=== PATIENT | male | born 1965 | race Caucasian/White ===

== ENCOUNTER 2023-09-22 09:10 | Outpatient (OUT) | payer OTHER, SELFPAY ==
--- NOTE | 2023-09-22 | CT_ITS ---
[address] [address] Patient Name: POOJA GIBSON MRN: [id number] date: 1965 Sex: M Assigned Patient Location: CT Current Patient Location: Accession/Order Number: [id number] Exam Date: 09/22/2023 09:40 Report Date: 09/24/2023 07:55 At the request of: DUC BLEDSOE Procedure: CT lung screening low-dose EXAMINATION: CT lung screening low-dose HISTORY: cigarette nicotine dependence COMPARISON: No relevant comparison available. TECHNIQUE: Axial, Coronal, and Sagittal images were created without the administration of IV contrast material.Dose reduction techniques were achieved by using automated exposure control and/or adjustment of mA and/or kV according to patient size and/or use of iterative reconstruction technique. FINDINGS: LUNGS: No visible pulmonary disease. PLEURA: No mass, effusion, or pneumothorax. VASCULATURE: No abnormality. DANIEL: No mass or pathologic adenopathy. MEDIASTINUM: No mass or pathologic adenopathy. CARDIAC: No enlargement, pericardial thickening, or significant calcification. CORONARY ARTERIES: AORTA: No aneurysm or dissection. CHEST WALL: No mass or axillary adenopathy BONES: No bone lesion or fracture. LIMITED ABDOMEN: No suspicious findings. Limited images of the upper abdomen. OTHER: Negative. CT/CT lung screening low-dose IMPRESSION: LUNG SCREENING: Lung-RADS Category 1 Negative. No nodules and definitely benign nodules. Continue annual screening with LDCT in 12 months. Electronically authenticated by: DEVIN GAINES Date: 09/24/2023 07:55
== END 2023-09-22 09:11 | disposition home or self-care (01) ==
LOC: CT 09:13
PROVIDERS: PCP Family Medicine; Visit Provider Family Medicine
DX: F17.210 Nicotine dependence, cigarettes, uncomplicated (principal)
CPT/HCPCS: 71271

== ENCOUNTER 2023-09-22 09:15 | Outpatient (OUT) | payer OTHER, SELFPAY ==
[2023-09-22 09:53] LABS: Basophils Percent Auto 0.5 % (0.2-2.0); Eosinophils Absolute Auto 0.1 10^3/uL (0.0-0.7); Eosinophils Percent Auto 1.2 % (0.9-7.0); Hematocrit 39.4 % (42.0-54.0); Hemoglobin 13.1 g/dL (14.0-18.0); Immature Granulocytes Abs Auto 0.04 10^3/uL (0.00-0.03); Immature Granulocytes Pct Auto 0.5 % (0.0-0.5); Lymphocytes Absolute Auto 1.6 10^3/uL (1.2-3.8); Lymphocytes Percent Auto 20.7 % (20.5-60.0); Mean Corpuscular HGB Conc 33.2 g/dL (29.9-35.2); Mean Corpuscular Hemoglobin 31.8 pg (25.9-34.0); Mean Corpuscular Volume 95.6 fL (80.0-94.0); Mean Platelet Volume 8.9 fL (9.5-13.5); Monocytes Absolute Auto 0.7 10^3/uL (0.3-0.8); Monocytes Percent Auto 8.8 % (1.7-12.0); Neutrophils Absolute Auto 5.1 10^3/uL (1.4-6.5); Neutrophils Percent Auto 68.3 % (43.0-75.0); Platelet Count 280 10^3/uL (150-450); Red Blood Count 4.12 10^6/uL (4.70-6.10); Red Cell Distribution Width 12.2 % (11.0-15.0); White Blood Count 7.5 10^3/uL (4.0-11.0)
[2023-09-22 10:22] LABS: Alanine Aminotransferase 37 U/L (16-63); Albumin Globulin Ratio 0.8; Albumin Level 3.1 g/dL (3.4-5.0); Alkaline Phosphatase 73 U/L (46-116); Anion Gap 13.1; Aspartate Amino Transferase 16 U/L (15-37); BUN Creatinine Ratio 15.4; Bilirubin Total 0.4 mg/dL (0.2-1.0); Calcium 8.3 mg/dL (8.5-10.1); Carbon Dioxide 25.7 mmol/L (21.0-32.0); Chloride 102 mmol/L (98-107); Chol HDL Ratio 2.8; Cholesterol 182 mg/dL (<=200); Estimated GFR (African America >60 (>=60); Estimated GFR (Non-African Ame >60 (>=60); Globulin 3.7 g/dL; Glucose 77 mg/dL (74-106); HDL Cholesterol 64 mg/dL (40-60); Potassium 3.8 mmol/L (3.5-5.1); Sodium 137 mmol/L (136-145); Total Protein 6.8 g/dL (6.4-8.2); Triglycerides 83 mg/dL (<=150); VLDL CHOLESTEROL 16.6 mg/dL
[2023-09-22 10:39] LABS: Prostate Specific Antigen Scrn 1.66 ng/mL (<=4.00)
== END 2023-09-22 09:16 | disposition home or self-care (01) ==
LOC: LAB 09:16
PROVIDERS: PCP Family Medicine; Visit Provider Family Medicine
DX: Z00.00 Encounter for general adult medical examination without abnormal findings (principal); F17.210 Nicotine dependence, cigarettes, uncomplicated; Z12.5 Encounter for screening for malignant neoplasm of prostate; E78.5 Hyperlipidemia, unspecified; I10 Essential (primary) hypertension
CPT/HCPCS: 36415; 71271; 80053; 80061; 85025; G0103

== ENCOUNTER 2024-03-13 14:59 | Outpatient (REF) | payer OTHER, SELFPAY ==
[2024-03-13 15:15] LABS: Bilirubin Urine NEGATIVE (NEGATIVE); Blood Urine NEGATIVE (NEGATIVE); Clarity Urine CLEAR (CLEAR); Color Urine YELLOW (YELLOW); Glucose Urine UA NEGATIVE (NEGATIVE); Ketones Urine NEGATIVE (NEGATIVE); Leukocyte Esterase Urine NEGATIVE (NEGATIVE); Nitrite Urine NEGATIVE (NEGATIVE); Protein Urine NEGATIVE (NEG/TRACE)
--- OUTSIDE RECORDS SUMMARY | 2024-03-13 15:16 | XMS_ITS | CCD ---
Author Organization [facility] CliniSytx Care Team Providers Care Pipe Coverer Name Role Phone CLAUDIA, DR DEEPA Crowder Admitting Unavailable TAYLOR, DR DEEPA Crowder Attending Unavailable TAYLOR, DR DEEPA Crowder Primary Care Unavailable TAYLOR, DR DEEPA Crowder Consulting Unavailable GRILLIS, DR ALDANA Admitting Unavailable GRILLIS, DR ALDANA Attending Unavailable TAYLOR, DR DEEPA Crowder Primary Care Unavailable GRILLIS, DR ALDANA Consulting Unavailable GRILLIS, DR ALDANA Admitting Unavailable GRILLIS, DR ALDANA Attending Unavailable TAYLOR, DR DEEPA Crowder Primary Care Unavailable GRILLIS, DR ALDANA Consulting Unavailable AGUBOSIM, BERTHA Consulting Unavailable CARMEN, MAGDALENA Consulting Unavailable TAYLOR, DR DEEPA Crowder Admitting Unavailable TAYLOR, DR DEEPA Crowder Attending Unavailable TAYLOR, DR DEEPA Crowder Primary Care Unavailable TAYLOR, DR DEEPA Crowder Consulting Unavailable ZIEBER, DR NAMITA Lucas Consulting Unavailable TAYLOR, DR DEEPA Crowder Admitting Unavailable TAYLOR, DR DEEPA Crowder Attending Unavailable TAYLOR, DR DEEPA Crowder Primary Care Unavailable TAYLOR, DR DEEPA Crowder Consulting Unavailable ZIEBER, DR NAMITA Lucas Consulting Unavailable Morteza De Leon II Unavailable Susan Allen Unavailable Devyn Khan Unavailable MD Deepa Taylor Primary Care Provider MD Morteza De Leon II Attending Provider [phone] Renae Long Unavailable Bertha Sood Attending Unavailable Bertha Sood Attending Unavailable Bertha oSod Attending Unavailable MD Trish Becerril Primary Care Provider MD Morteza De Leon II Attending Provider Morteza De Leon II Attending Unavailabl e Colleton II, Morteza M Admitting Unavailabl e BecerrilTrish Primary Care Unavailable Colleton II, Morteza M Attending Unavailabl e Claude II, Morteza M Admitting Unavailabl e Becerril, Trish E Primary Care Unavailable Colleton II, Morteza M Admitting Unavailabl e Becerril, Trish E Primary Care Unavailable Claude II, Morteza M Attending Unavailabl e Claude II, Morteza M Attending Unavailabl e Becerril, Trish E Primary Care Unavailable Colleton II, Morteza M Admitting Unavailabl e Colleton II, Morteza M Admitting Unavailabl e Becerril, Trish E Primary Care Unavailable Colleton II, Morteza M Attending Unavailabl e Claude II, Morteza M Admitting Unavailabl e Becerril, Trish E Primary Care Unavailable Colleton II, Morteza M Attending Unavailabl e Allergies Allergy Classification Reported Allergen(s) Allergy Type Date of Onset Reaction(s) Facility (1 source) celecoxib; Translations: [CeleBREX] Drug Allergy [facility] Repository Medications Current Medications Medication Drug Class(es) Dates Sig (Normalized) Sig (Original) acetaminophen 500 mg oral tablet (4 sources) Start: 02-28-2024 take 1000 mg by mouth every eight hours Acetaminophen Active 1000 MG PO Q8H 180 30 February 28, 2024 12:00am DO NOT RECONCILE UNTIL DOS: 03/10/24. MED TO BED amoxicillin 875 mg / clavulanate 125 mg oral tablet (3 sources) Penicillin-class Antibacterial Start: 02-10-2023 take 1 tablet by mouth every twelve hours Amoxicillin-Pot Clavulanate 875-125 MG 1 tablet Orally every 12 hrs for 7 days Jan, Active ascorbic acid 500 mg oral tablet (11 sources) Vitamin C Start: 07-30-2018 take 1 tablet by mouth once daily Ascorbic Acid (Vitamin C) (Vitamin C) 500 mg Tablet Active 500 MG PO Daily July 30, 2018 1:00am aspirin 81 mg delayed release oral tablet (20 sources) Platelet Aggregation Inhibitor, Nonsteroidal Anti-inflammatory Drug Start: 02-28-2024 take 81 mg by mouth twice daily Aspirin Active 81 MG PO Twice daily 70 35 February 28, 2024 12:00am DO NOT RECONCILE UNTIL DOS: 03/10/24. MED TO BED Start: 07-30-2018 Aspirin (Julia Low Dose Aspirin) 81 mg Tablet,Delayed Release (Dr/Ec) Active 81 MG PO Daily July 30, 2018 1:00am Baby Aspirin Act jaylon cefadroxil 500 mg oral capsule (4 sources) Cephalosporin Antibacterial Start: 02-28-2024 take 500 mg by mouth every twelve hours Cefadroxil Active 500 MG PO Q12H 14 February 28, 2024 12:00am DO NOT RECONCILE UNTIL DOS: 03/10/24. MED TO BED docusate sodium 50 mg / sennosides, retirement 8.6 mg oral tablet (4 sources) Start: 02-28-2024 take 2 tablets by mouth once daily Sennosides-Docusat e Sodium (Senokot-S) 8.6-50 mg tablet Active 2 TAB PO daily 60 February 28, 2024 12:00am DO NOT RECONCILE UNTIL DOS: 03/10/24. MED TO BED ergocalciferol 1.25 mg oral capsule (5 sources) Provitamin D2 Compound Start: 02-08-2024 take 1250 ug by mouth every week Ergocalciferol (Vitamin D2) Active 1250 MCG PO Q7D 8 60 February 08, 2024 12:00am hydroCHLOROthiazide 25 mg / losartan potassium 100 mg oral tablet (5 sources) Thiazide Diuretic, Angiotensin 2 Receptor Jaylen Start: 02-26-2024 take 1 tablet by mouth once daily in the morning Losartan-Hydrochlo rothiazide Active 1 TAB PO Every morning February 26, 2024 12:00am ibuprofen 200 mg oral tablet (20 sources) Nonsteroidal Anti-inflammatory Drug Start: 09-05-2023 take 1 tablet by mouth every six hours at mealtime as needed Ibuprofen Active 200 MG PO Every 6 hours September 05, 2023 1:00am FreeTextSi tablet with food or milk as needed Orally every 6 hrs; Note: Source Status: Not-Taking\PRN; Provider: Tiffany Davis ( ) take 1 tablet by parag th every six hours at mealtime as needed Ibuprofen 200 MG 1 tablet with food or m ilk as needed Orally every 6 hrs Not-Taking/PRN meloxicam 15 mg oral tablet (5 sources) Nonsteroidal Anti-inflammatory Drug Start: 02-19-2024 take 15 mg by mouth once daily Meloxicam Active 15 MG PO Daily February 19, 2024 12:00am On Hold: Resume on 04/10/24. ondansetron 4 mg oral tablet (4 sources) Serotonin-3 Receptor Antagonist Start: 02-28-2024 take 4 mg by mouth every eight hours Ondansetron Hcl Active 4 MG PO Q8H 9 February 28, 2024 12:00am DO NOT RECONCILE UNTIL DOS: 03/10/24. MED TO BED oxyCODONE hydrochloride 5 mg oral tablet (4 sources) Opioid Agonist Start: 02-28-2024 take 5 mg by mouth every four hours Oxycodone Active 5 MG PO Q4H 42 7 February 28, 2024 DO NOT RECONCILE UNTIL DOS: 03/10/24. MED TO BED pantoprazole 20 mg delayed release oral tablet (4 sources) Proton Pump Inhibitor Start: 02-28-2024 take 1 tablet by mouth once daily Pantoprazole (Protonix) 20 mg tablet,delayed release (DR/EC) Active 20 MG PO daily 35 35 February 28, 2024 12:00am DO NOT RECONCILE UNTIL DOS: 03/10/24. MED TO BED polyethylene glycol 3350 85612 mg powder for oral solution (4 sources) Osmotic Laxative Start: 02-28-2024 Polyethylene Glycol 3350 (Miralax) 17 gram/dose powder Active 17 GM PO daily 7 7 February 28, 2024 12:00am 1 packed mixed with 8 ounces of fluid. predniSONE 10 mg oral tablet (4 sources) Start: 02-28-2024 take 10 mg by mouth once daily Prednisone Active 10 MG PO daily 10 10 February 28, 2024 12:00am DO NOT RECONCILE UNTIL DOS: 03/10/24. MED TO BED traMADol hydrochloride 50 mg oral tablet (4 sources) Opioid Agonist Start: 02-28-2024 take 50 mg by mouth every six hours Tramadol Active 50 MG PO q6h 28 7 February 28, 2024 12:00am DO NOT RECONCILE UNTIL DOS: 03/10/24. MED TO BED Zinc (5 sources) Start: 02-26-2024 zinc Active Daily February 26, 2024 12:00am Completed/Discontinued Medications Medication Drug Class(es) Dates Sig (Normalized) Sig (Original) Amoxicillin (4 sources) Penicillin-class Antibacterial Amoxicillin Not-Taking/PRN Amoxicillin Not- Taking Amoxicillin Acti ve atorvastatin 40 mg oral tablet (11 sources) HMG-CoA Reductase Inhibitor Start: 07-30-2018 End: 02-05-2024 take 40 mg by mouth once daily at bedtime Atorvastatin Discontinued 40 MG PO Daily at bedtime July 30, 2018 1:00am February 05, 2024 4:06pm bisoprolol fumarate 10 mg / hydroCHLOROthiazide 6.25 mg oral tablet (11 sources) Thiazide Diuretic, beta-Adrenergic Jaylen Start: 07-30-2018 End: 02-05-2024 take 1 tablet by mouth once daily Bisoprolol-Hydroc hlorothiazide Discontinued 1 TAB PO Daily July 30, 2018 1:00am February 05, 2024 4:07pm diclofenac sodium 0.01 mg/mg topical gel (14 sources) Nonsteroidal Anti-inflammatory Drug Start: 11-03-2021 Diclofenac Sodium 1 % APPLY 1-2 GRAMS TO AFFECTED AREA Externally Four times a day for 30 days Oct, Not-Taking/PRN glucose 4000 mg chewable tablet (11 sources) Start: 07-30-2018 End: 02-05-2024 Glucose Discontinued 4 GM PO Q15M July 30, 2018 1:00am February 05, 2024 4:06pm 24 hr isosorbide mononitrate 30 mg extended release oral tablet (11 sources) Nitrate Vasodilator Start: 07-30-2018 End: 07-31-2018 take 30 mg by mouth once daily in the morning Isosorbide Mononitrate Discontinued 30 MG PO Every morning July 30, 2018 1:00am July 31, 2018 11:30am losartan potassium 25 mg oral tablet (20 sources) Angiotensin 2 Receptor Jaylen Start: 09-05-2023 End: 02-26-2024 take 25 mg by mouth once daily Losartan Discontinued 25 MG PO Daily September 05, 2023 1:00am February 26, 2024 1:37pm Losartan Potassi um Active metoprolol tartrate 25 mg oral tablet (11 sources) beta-Adrenergic Jaylen Start: 07-30-2018 End: 07-31-2018 take 12.5 mg by mouth twice daily Metoprolol Tartrate Discontinued 12.5 MG PO Twice daily July 30, 2018 1:00am July 31, 2018 11:30am triamcinolone acetonide 40 mg/ml injectable suspension (20 sources) Corticosteroid Start: 01-17-2023 Kenalog-40 Apr, 80 mg Start: 12-21-2021 Kenalog-40 Jun, 120 mg Start: 08-05-2021 Kenalog -40 mg Jul, 120 mg Start: 06-02-2021 Kenalog -40 mg May, 120 mg Visco 3 (20 sources) Start: 07-19-2022 Visco 3 Jul 2.5 mL Start: 07-12-2022 Visco 3 Jun 2.5 mL Start: 07-05-2022 Visco 3 Jun 2.5 mL Problems Active Problems Problem Classification Problem Date Documented Date Episodic/Chronic Disorders of lipid metabolism (12 sources) Hyperlipidemia; Translations: [Hyperlipidemia, unspecified] Onset: 02-07-2024 09-11-2023 Chronic Diverticulosis and diverticulitis (1 source) Diverticulosis of large intestine without perforation or abscess without bleeding; Translations: [DVRTCLOS LG INT NO PERF/ABSC W/O BL] Onset: 09-19-2021 Chronic Essential hypertension (19 sources) Essential (primary) hypertension; Translations: [Hypertensive disorder] Onset: 09-19-2021 09-11-2023 Chronic Osteoarthritis (20 sources) Arthritis of left knee; Translations: [Unilateral primary osteoarthritis, left knee] Onset: 11-03-2021 Resolved: 12-21-2021 Chronic Osteoporosis (9 sources) Osteoporosis; Translations: [Age-related osteoporosis without current pathological fracture] Onset: 02-07-2024 01-30-2024 Chronic Other aftercare (1 source) Aftercare following joint replacement surgery; Translations: [Aftercare following joint replacement surgery] Onset: 02-28-2024 Chronic Other aftercare (8 sources) Long-term current use of drug therapy; Translations: [Other terminal press operator (current) drug therapy] 01-30-2024 Episodic Other aftercare (1 source) Other correction (current) drug therapy; Translations: [Other terminal press operator (current) drug therapy] Onset: 02-07-2024 Episodic Other injuries and conditions due to external causes (14 sources) Injury of chest wall; Translations: [Thoracic sprain and strain] Episodic Other nervous system disorders (8 sources) Chronic pain; Translations: [Other chronic pain] Chronic Other nervous system disorders (1 source) Other chronic pain Chronic Other non-traumatic joint disorders (1 source) Pain in left knee Episodic Other screening for suspected conditions (not mental disorders or infectious disease) (17 sources) Encounter for screening for malignant neoplasm of colon; Translations: [Encounter for screening for malignant neoplasm of prostate] Onset: 05-11-2021 Episodic Other upper respiratory infections (2 sources) Acute pharyngitis, unspecified; Translations: [Acute maxillary sinusitis, unspecified] Episodic Sprains and strains (20 sources) Low back strain; Translations: [Lumbar strain] Episodic Substance-related disorders (11 sources) Nicotine dependence; Translations: [Nicotine dependence, cigarettes, uncomplicated] 09-12-2023 Chronic Unclassified (4 sources) CONTACT W/AND (SUSP) EXPOS COVID-19; Translations: [CONTACT W/AND (SUSP) EXPOS COVID-19] Onset: 07-28-2021 Past or Other Problems Problem Classification Problem Date Documented Da te Episodic/Chronic Other connective tissue disease (4 sources) Pain in left leg; Translations: [PAIN IN LEFT LEG] Onset: 05-13-2021 Episodic Other connective tissue disease (1 source) Pain in left lower leg; Translations: [PAIN IN LEFT LOWER LEG] Onset: 05-11-2021 Episodic Unclassified (1 source) CONTACT W/AND (SUSP) EXPOS COVID-19; Translations: [CONTACT W/AND (SUSP) EXPOS COVID-19] Onset: 07-22-2021 Results Test Name Value Interpretation Reference Range Facility ABO/Rh Retypeon 03-10-2024 ABO/RH Recheck Result Positive Normal [facility] Comment on above: Result Comment: PERF ORMED BY: [address] [id number] PATHOLOGIST PLATINUMSMITH ADDY GALEANO M.D. XR knee LT 2Von 03-10-2024 XR knee LT 2V [facility] Main [address] [address] XRay Report Signed Patient: Pooja Gibson MR#: [id number] 546 : 1965 Acct:[id number] Age/Sex: 58 / M ADM Date: 03/10/24 Loc: [place] Room: Type: [facility] Attending Dr: Morteza De Leon II, MD Copies to: Morteza De Leon MD Ordering Provider: Morteza De Leon MD Date of Service: 03/10/24 XR/XR knee LT 2V: Total or partial knee, due in PACU XR knee LT 2V 03/10/2024 7:37 AM SIGNS AND SYMPTOMS: Total or partial knee, due in PACU PROTOCOL: Frontal and lateral radiographs of the left knee COMPARISON: 01/30/2024 FINDINGS: Arthroplasty hardware is noted in the medial weightbearing compartment. This is new compared to the prior exam. The bones are in anatomic alignment. No hardware complication. Postoperative subcutaneous emphysema is noted. XR/XR knee LT 2V IMPRESSION: Interval arthroplasty hardware placement in the medial weightbearing compartment without hardware complication or malalignment. Impression dictated by: Ugo Trent M.D.03/10/2024 10:19 AM Dictation Location: [place] [address] Transcribed By: [facility] 03/10/24 1019 Dictated By: Ugo Trent II, MD 03/10/24 1017 Signed By: 03/10/24 1019 Normal [facility] XR tibia fibula LT 2V*on XR tibia fibula LT 2V* [facility] [address] [place] [address] XRay Report Signed Patient: Pooja Gibson MR#: [id number] 546 : 1965 Acct:[id number] Age/Sex: 58 / M ADM Date: 02/28/24 [place] [facility]: Type: [facility] Attending Dr: Morteza De Leon II, MD Copies to: Morteza De Leon MD Ordering Provider: Morteza De Leon MD Date of Service: 02/28/24 XR/XR tibia fibula LT 2V*: M17.12 - Unilateral primary osteoarthritis, left knee ([id number]) XR/XR femur LT 2V*: M17.12 - Unilateral primary osteoarthritis, left knee 2 views of the LEFT femur and 2 views of the LEFT tibia and fibula HISTORY: Preop assessment for LEFT total knee arthroplasty. Marked LEFT medial compartment degenerative changes. Unremarkable femur and hips. Symmetric pelvis. Likely old fracture of the proximal RIGHT tibia. Bony structures intact. Mild bilateral ankle joint degeneration greater on the RIGHT. Mild RIGHT knee degenerative change. XR/XR femur LT 2V* IMPRESSION: Extensive LEFT medial compartment degeneration. Impression dictated by: Dimitry Ellison M.D.02/28/2024 7:12 PM Dictation Location: [place] [address] Transcribed By: [facility] 02/28/241911 Dictated By: Dimitry Ellison DO 02/28/241908 Signed By: 02/28/241911 Normal [facility] Automated basophil %Ordered By: Morteza De Leon on 02-26-2024 Basophils/100 WBC (Bld) 0.4 % Normal . [facility] Comment on above: Performed By: #### B MP, CBC #### [address] #### FRUC #### [facility] , Automated basophil countOrde red By: Morteza De Leon on 02-26-2024 Basophils (Bld) [#/Vol] 0.0 10*3/uL Normal 0.0-0.2 [facility] Comment on above: Result Comment: PERF ORMED BY: [place] [address] PATHOLOGIST PLATINUMSMITH ADDY GALEANO M.D. Performed By: #### B MP, CBC #### [place] [address] [place] #### FRUC #### [facility] , Automated blood monocyte cou ntOrdered By: Morteza De Leon on 02-26-2024 Monocytes (Bld) [#/Vol] 0.7 10*3/uL Normal 0.0-0.8 [facility] Comment on above: Performed By: #### B MP, CBC #### [place] [address] [place] #### FRUC #### [facility] , Automated eosinophil %Ordere d By: Morteza De Leon on 02-26-2024 Eosinophils/100 WBC (Bld) 1.2 % Normal . [facility] Comment on above: Performed By: #### B MP, CBC #### [facility] [address] [place] [address] [place] #### FRUC #### [facility] , Automated eosinophil countOr dered By: Mortzea De Leon on 02-26-2024 Eosinophils (Bld) [#/Vol] 0.1 10*3/uL Normal 0.0-0.45 [facility] Comment on above: Performed By: #### B MP, CBC #### [facility] [address] [place] [address] [place] #### FRUC #### [facility] , Automated monocyte %Ordered By: Morteza De Leon on 02-26-2024 Monocytes/100 WBC (Bld) 8.5 % Normal . [facility] Comment on above: Performed By: #### B MP, CBC #### [facility] [address] [place] [address] [place] #### FRUC #### [facility] , Automated neutrophil %Ordere d By: Morteza De Leon on 02-26-2024 Neutrophils/100 WBC (Bld) 73.1 % Normal . [facility] Comment on above: Performed By: #### B MP, CBC #### [facility] [address] [place] [address] [place] #### FRUC #### [facility] , Basic Metabolic Panelon 02-13 GFR/1.73 sq M.predicted MDRD (S/P/Bld) [Vol rate/Area] mL/min/{1.73_m2} Normal [facility] Comment on above: Performed By: #### B MP, CBC #### [facility] [address] [place] [address] [place] #### FRUC #### [facility] , Bilirubin Test strip Ql (U)O rdered By: Morteza De Leon on 02-26-2024 Bilirubin Ql (U) Negative Negative [facility] Calcium [Mass/volume] in Ser um or PlasmaOrdered By: Morteza De Leon on 02-26-2024 Calcium [Mass/Vol] 9.3 mg/dL Normal 8.6-10.3 [facility] Comment on above: Result Comment: PERF ORMED BY: [place] [address] PATHOLOGIST PLATINUMSMITH ADDY GALEANO M.D. Performed By: #### B MP, CBC #### [address] #### FRUC #### [facility] , Carbon dioxide, total [Moles /volume] in Serum or PlasmaOrdered By: Morteza De Leon on 02-26-2024 CO2 [Moles/Vol] 30.6 mmol/L Normal 21.0-31.0 [facility] Comment on above: Performed By: #### B MP, CBC #### [facility] [address] [place] [address] #### FRUC #### [facility] , Chloride [Moles/volume] in S tony or PlasmaOrdered By: Morteza De Leon on 02-26-2024 Chloride [Moles/Vol] 104 mmol/L Normal 98-107 [facility] Comment on above: Performed By: #### B MP, CBC #### [facility] [address] [place] [address] [place] #### FRUC #### [facility] , Color of Urine by AutoOrdere d By: Morteza De Leon on 02-26-2024 Color (U) Light-yellow Normal Yellow [facility] Comment on above: Order Comment: Name Collection Type:: Clean-Voided Midstream Performed By: #### U A #### [address] Complete Blood Count Auto Di ffon 02-26-2024 Mean Corpuscular HGB Conc 33.8 g/dL Normal 32.5-35.6 [facility] Comment on above: Performed By: #### B MP, CBC #### [facility] [address] [place] [address] [place] #### FRUC #### [facility] , NRBC% 0.0 /100{WBC} Normal 0-0.5 [facility] Comment on above: Performed By: #### B MP, CBC #### [place] [address] [place] #### FRUC #### [facility] , Creatinine [Mass/volume] in Serum or PlasmaOrdered By: Morteza De Leon on 02-26-2024 Creatinine [Mass/Vol] 0.82 mg/dL Normal 0.70-1.30 [facility] Comment on above: Performed By: #### B MP, CBC #### [place] [address] [place] #### FRUC #### [facility] , ECG 12 lead ECGon 02-26-2024 ECG 12 lead ECG [facility] [place] [address] [place] [address] Electrocardiograph Report Signed Patient: Pooja Gibson MR#: [id number] 546 : 1965 Acct:[id number] Age/Sex: 58 / M ADM Date: 02/26/24 Loc: Room: Type: [facility] Attending Dr: Morteza De Leon II, MD Ordering Provider: Morteza De Leon MD Date of Service: 02/26/24 ECG/ECG 12 lead ECG: preop Copies to: Test Reason : Blood Pressure : */* mmHG Vent. Rate : 89 BPM Atrial Rate : 89 BPM P-R Int : 180 ms QRS Dur : 94 ms QT Int : 364 ms P-R-T Axes : 33 -16 49 degrees QTcB Int : 442 ms Normal sinus rhythm Normal ECG When compared with ECG of 30-Jul-2018 08:09, No significant change was found Confirmed by Gilberto Kennedy ([id number]) on 02/27/2024 9:33:56 AM Referred By: Electronically Signed By: Gilberto Kennedy Transcribed By: SUZAN Signed By Gilberto Kennedy MD 02/27/24 0933 Normal [facility] Erythrocyte distribution wid th [Ratio] by Automated countOrdered By: Morteza De Leon on 02-26-2024 Erythrocyte distribution width (RBC) [Ratio] 12.6 % Normal 12.0-14.8 [facility] Comment on above: Performed By: #### B MP, CBC #### [facility] [address] [place] [address] [place] #### FRUC #### [facility] , Erythrocytes [#/volume] in B lood by Automated countOrdered By: Morteza De Leon on 02-26-2024 RBC (Bld) [#/Vol] 4.12 10*6/uL Normal 3.90-5.60 [facility] Comment on above: Performed By: #### B MP, CBC #### [place] [address] [place] #### FRUC #### [facility] , Fructosamineon 02-26-2024 Fructosamine 213 umol/L Normal 0-285 [facility] Comment on above: Result Comment: Publ ished reference interval for apparently healthy subjects between age 20 and 60 is 205 - 285 umol/L and in a poorly controlled diabetic population is 228 - 563 umol/L with a mean of 396 umol/L. Performed at: [facility] [address] [id number] Pedicurist: Luisito Reyna PhD, Phone: [phone] PERFORMED BY: [place] [address] PATHOLOGIST PLATINUMSMITH ADDY GALEANO M.D. Performed By: #### B MP, CBC #### [facility] [address] [place] [address] [place] #### FRUC #### [facility] , Fructosamine [Moles/volume] in Serum or PlasmaOrdered By: Morteza De Leon on 02-26-2024 Fructosamine [Moles/Vol] 213 umol/L 0-285 [facility] Comment on above: Published reference interval for apparently healthysubjects between age 20 and 60 is 205 - 285 umol/L and in apoorly controlled diabetic population is 228 - 563 umol/Lwith a mean of 396 umol/L.Performed at: - [facility] [id number] Director: Luisito Reyna PhD, Phone: [phone] Glucose [Mass/volume] in Ser um or PlasmaOrdered By: Morteza De Leon on 02-26-2024 Glucose [Mass/Vol] 121 mg/dL High 70-100 [facility] Comment on above: ADA recommended refe rence rangeRandom Glucose Reference Range is dependent on time and content of last meal. Glucose of more than 200 mg/dL in a nonstressed, ambulatory subject supports the diagnosis of Diabetes Mellitus. Result Comment: [place] om Glucose Reference Range is dependent on time and content of last meal. Glucose of more than 200 mg/dL in a nonstressed, ambulatory subject supports the diagnosis of Diabetes Mellitus. ADA recommended reference range Performed By: #### B MP, CBC #### [facility] [address] [place] [address] [place] #### FRUC #### [facility] , Glucose [Mass/volume] in Uri ne by Test stripOrdered By: Morteza De Leon on 02-26-2024 Glucose Test strip (U) [Mass/Vol] Normal mg/dL Normal [facility] Hematocrit [Volume Fraction] of Blood by Automated countOrdered By: Morteza De Leon on 02-26-2024 Hematocrit (Bld) [Volume fraction] 39.4 % Normal 38.8-50.0 [facility] Comment on above: Performed By: #### B MP, CBC #### [facility] [address] [place] [address] [place] #### FRUC #### [facility] , Hemoglobin Test strip Ql (U) Ordered By: Morteza De Leon on 02-26-2024 Hemoglobin Ql (U) Negative Negative [facility] Hemoglobin [Mass/volume] in BloodOrdered By: Morteza eD Leon on 02-26-2024 Hemoglobin (Bld) [Mass/Vol] 13.3 g/dL Normal 13.0-17.0 [facility] Comment on above: Performed By: #### B MP, CBC #### [address] #### FRUC #### [facility] , Ketones [Presence] in Urine by Test stripOrdered By: Morteza De Leon on 02-26-2024 Ketones Ql (U) Negative Normal Negative [facility] Comment on above: Order Comment: Name Collection Type:: Clean-Voided Midstream Performed By: #### U A #### [address] Leukocyte esterase [Presence ] in Urine by Test stripOrdered By: Morteza De Leon on 02-26-2024 Leukocyte esterase Test strip Ql (U) Negative Normal Negative [facility] Comment on above: Order Comment: Name Collection Type:: Clean-Voided Midstream Performed By: #### U A #### [address] Leukocytes [#/volume] correc krissy for nucleated erythrocytes in Blood by Automated counOrdered By: Morteza De Leon on 02-26-2024 WBC corrected for nucl RBC Auto (Bld) [#/Vol] 8.7 10*3/uL 4.1-10.5 [facility] Leukocytes [#/volume] in Blo od by Automated countOrdered By: Morteza De Leon on 02-26-2024 WBC (Bld) [#/Vol] 8.7 10*3/uL Normal 4.1-10.5 [facility] Comment on above: Performed By: #### B MP, CBC #### [facility] [address] [place] [address] #### FRUC #### [facility] , Lymphocytes [#/volume] in Bl ood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 plate. His eyes rest on a plate. He has screws that keep his jaw aligned and wire mesh that covers the plates under his eyes. He believes he suffers from asthma. He used to struggle with breathing whenever he smoked cigarettes. He quit smoking and has not had any problems. He experienced an adverse reaction to an inhaler at work, which resulted in tachycardia and elevated blood pressure. Consequently, he was brought to the hospital. This incident occurred approximately 18 or 19 years ago. He reports a couple of incidents at work. The most recent incident is when he came to see someone, and everything went fuzzy. He subsequently found himself in the health center, unable to recall the events of the past 15 minutes. He was informed that he was transported via ambulance. At the scene, had was seen with gas masks and hoses. He went to the hospital, but the cause of these episodes remains undetermined. He took his blood pressure medication this morning at 5:00 AM., which he takes daily. He had a physical done at work and they gave him a new card. He underwent a physical examination at his workplace and received a new card. His current blood pressure reading is 146/82 mmHg. On 09/08/2021, his blood pressure was 152/90 mmHg. He has a habit of frequently monitoring his blood pressure and carries the card in his wallet for reference. He quit smoking between 3 and 4 years ago, with a smoking history of 45 years at a rate of 2 packs per day. He reports no breathing problem. He has not seen Dr. Taylor in about 1.5 years. He saw him whenever they did an angiogram. He had him do a stress test. He cannot run or walk on the treadmill. He was told that his blockage was minimal, and intervention was not required for several years. Review of Systems PHQ Score Initial Depression Screen Score: 0 SCORE Physical Exam Vitals & Measurements T: 36.8 ?C(Oral) HR: 92(Peripheral) RR: 18 BP: 150/86 SpO2: 96% HT: 73 in HT: 185.42 cm WT: 123.3 kg WT: 271.26 lb BMI: 35.86 General: alert, no acute distress ENMT: oral mucosa moist, no pharyngeal erythema or exudate Cardiovascular: regular rate and rhythm, normal peripheral perfusion Respiratory: Lungs CTA, respirations non labored Extremities: no deformity, no trauma Neurological: oriented x 4, LOC appropriate for age, CN II-XII intact, motor strength equal & normal bilaterally, speech normal Assessment/Plan 1. HTN (hypertension) (I10: Essential (primary) hypertension) Patient's blood pressure is not at a goal range today.Upon reviewing all the patient's last blood pressure readings, the patient has not been controlled for quite some time. We will go ahead and increase his medication today and follow up in 3 months for recheck. 2. Migraines (G43.909: Migraine, unspecified, not intractable, without status migrainosus) The patient does have issues with migraines, self-limited secondary to multiple surgeries on the skull. 3. OA (osteoarthritis) (M19.90: Unspecified osteoarthritis, unspecified site) OTC medications as advised. 4. BMI 35.0-35.9,adult (Z68.35: Body mass index [BMI] 35.0-35.9, adult) BMI education given. 5. Class 1 obesity due to excess calories in adult (E66.09: Other obesity due to excess calories) Diet and exercise advised. 6. Former smoker (Z87.891: Personal history of nicotine dependence) Please continue not to smoke. 7. Cigarette nicotine dependence in remission (F17.211: Nicotine dependence, cigarettes, in remission) We will do a low-dose CT scan. We will see the patient back in 3 months for a full physical with lab work. Portions of this record may have been created with voice recognition artificial intelligence software, specifically [employer], [employer] and or [employer]. Substituti (more content not included)... Normal [facility] Comment on above: Result Comment: Elec tronically Signed By: Bertha Sood MD\.br\Date and Time Signed: 08/27/23 12:38 EST\.br\Electronically Co-Signed By: Oscar Nicolas\.br\Date and Time Co-Signed: 08/20/23 19:37 EST Insurance Correspondenceon 0 08-23-2023 Insurance Correspondence [id number] [facility] Ambulatory Visit Summaryon 0 08-20-2023 Ambulatory Visit Summary POOJA GIBSON :1965 Visit Date:08/20/2023 Ambulatory Visit Instructions Your Diagnosis HTN (hypertension) Migraines OA (osteoarthritis) BMI 35.0-35.9,adult Class 1 obesity due to excess calories in adult Former smoker Cigarette nicotine dependence in remission Your Care Team Attending Physician - Bertha Sood MD Primary Care Physician - Bertha Sood MD This Is Your Medications List hydrochlorothiazide-losart an (hydrochlorothiazide-losar mcneil 25 mg-100 mg Tab) Contact prescribing physician if questions or concerns aspirin (aspirin 81 mg Oral EC Tab) Procedures Performed Arthroplasty, Colonoscopy, Surgery, Surgery. Discharge Vitals Temperature (Oral) 36.8 ?C Heart Rate (Peripheral) 92 Respiratory Rate 18 Blood Pressure 150/86 Height 185.42 cm Height 73 in Weight 123.3 kg Weight 271.26 lb BMI 35.86 What to do next Scheduled Follow-Up Appointments Sunday. 2023 5:15 PM EDT With: Bertha Sood MD Where: [facility] [place] Normal [facility] Physician Orderon 08-07-2023 Physician Order [id number] Normal [facility] Quick Strepon 02-10-2023 S. pyogenes Org specific cx Ql (Throat) Negative [employer] Other Quick Strep [facility] [email or web address] Other Covid-19 PCR ([facility])on 08-17 SARS-CoV-2 (COVID-19) RNA DELICIA+probe Ql (Unsp spec) Not detected Normal NOT DETECTED [facility] Comment on above: Result Comment: This test is not yet approved or cleared by the [place] FDA. When there are no FDA-approved or cleared tests available, and other criteria are met, FDA can make tests available under an emergency access mechanism called an Emergency Use Authorization (EUA). The EUA for this test is supported by the [place] of Health and Human Service's (HHS's) declaration that circumstances exist to justify the emergency use of in vitro diagnostics for the detection and/or diagnosis of the virus that causes COVID-19. This EUA will remain in effect (meaning this test can be used) for the duration of the COVID-19 declaration justifying emergency of IVDs, unless it is terminated or revoked by FDA (after which the test may no longer be used). When diagnostic testing is negative, the possibility of a false negative should be considered in the context of a patient's recent exposures and the presence of clinical signs and symptoms consistent with SARS-CoV-2. Performed By: #### C VDTB #### [facility] [address] [place] [address] Leonard Strauss Covid-19 PCR ([facility])on SARS-CoV-2 (COVID-19) RNA DELICIA+probe Ql (Unsp spec) Not detected Normal NOT DETECTED [facility] Comment on above: Result Comment: This test is not yet approved or cleared by the [place] FDA. When there are no FDA-approved or cleared tests available, and other criteria are met, FDA can make tests available under an emergency access mechanism called an Emergency Use Authorization (EUA). The EUA for this test is supported by the [place] of Health and Human Service's (HHS's) declaration that circumstances exist to justify the emergency use of in vitro diagnostics for the detection and/or diagnosis of the virus that causes COVID-19. This EUA will remain in effect (meaning this test can be used) for the duration of the COVID-19 declaration justifying emergency of IVDs, unless it is terminated or revoked by FDA (after which the test may no longer be used). When diagnostic testing is negative, the possibility of a false negative should be considered in the context of a patient's recent exposures and the presence of clinical signs and symptoms consistent with SARS-CoV-2. Performed By: #### C VDTB #### [facility] [address] [place] [address] Leonard Strauss NM BONE SCAN LIMITon 021 NM BONE SCAN LIMIT EXAMINATION: NM BONE SCAN LIMIT HISTORY: Pain of left lower leg ; pain in distal left leg between knee and ankle; no known injury COMPARISON: XR tib-fib left 05/04/2021 TECHNIQUE: Following the intravenous administration of 25.1 mCi Tc-99m sulfur colloid, static views were obtained over areas of interest. FINDINGS: REGION IMAGED: Distal lower extremities between knee and ankle. ABNORMAL FOCI: Small foci of increased radiotracer activity along the medial margin of the tibial plateau. OTHER: Negative. IMPRESSION: 1. Small focus of abnormal increased radiotracer activity involving the medial margin of the left tibial plateau with no corresponding findings on the recent radiographs; possible bone bruising or mild degenerative changes. Consider MRI of the knee if symptoms are localized to this area. 2. No abnormal radiotracer activity within the diaphysis of the tibia and fibula. Electronically authenticated by: NAMITA KYLE Date: 2021-05-13 10:31 Normal [facility] CBC AUTO DIFFon 05-04-2021 BASO # 0.0 103/ul Normal 0.0-0.1 [facility] Comment on above: Performed By: #### C BC #### [facility] [address] [address] [address] Leonard Strauss Basophils/100 WBC (Bld) 0.2 % Normal 0.2-2.0 [facility] Comment on above: Performed By: #### C BC #### [facility] [address] [address] [address] Leonard Strauss EO # 0.2 103/ul Normal 0.0-0.7 [facility] Comment on above: Performed By: #### C BC #### [facility] [address] [address] [address] Leonard Strauss Eosinophils/100 WBC (Bld) 1.9 % Normal 0.9-7.0 [facility] Comment on above: Performed By: #### C BC #### [facility] [address] [place] [address] Dr. Leonard Strauss Erythrocyte distribution width (RBC) [Ratio] 12.4 % Normal 11.0-15.0 [facility] Comment on above: Performed By: #### C BC #### [facility] [address] [address] [address] Leonard Strauss Hematocrit (Bld) [Volume fraction] 38.6 % Critically low 42.0-54.0 [facility] Comment on above: Performed By: #### C BC #### [facility] [address] [place] [address] Dr. Leonard Strauss Hemoglobin (Bld) [Mass/Vol] 12.8 g/dL Critically low 14.0-18.0 [facility] Comment on above: Performed By: #### C BC #### [facility] [address] [place] [address] Dr. Leonard Strauss IG # 0.03 10e3/ul Normal 0.00-0.03 [facility] Comment on above: Performed By: #### C BC #### [facility] [address] [place] [address] Dr. Leonard Strauss IG % 0.3 % Normal 0.0-0.5 [facility] Comment on above: Performed By: #### C BC #### [facility] [address] [place] [address] Dr. Leonard Strauss LYMPH # 2.0 103/ul Normal 1.2-3.8 [facility] Comment on above: Performed By: #### C BC #### [facility] [address] [place] [address] Dr. Leonard Strauss Lymphocytes/100 WBC (Bld) 23.3 % Normal 20.5-60.0 [facility] Comment on above: Performed By: #### C BC #### [facility] [address] [place] [address] Dr. Leonard Strauss MANUAL DIFF REQ NO Normal [facility] Comment on above: Performed By: #### C BC #### [facility] [address] [place] [address] Dr. Leonard Strauss MCH (RBC) [Entitic mass] 30.8 pg Normal 25.9-34.0 [facility] Comment on above: Performed By: #### C BC #### [facility] [address] [place] [address] Dr. Leonard Strauss MCHC (RBC) [Mass/Vol] 33.2 g/dL Normal 29.9-35.2 [facility] Comment on above: Performed By: #### C BC #### [facility] [address] [place] [address] Dr. Leonard Strauss MCV (RBC) [Entitic vol] 93.0 fL Normal 80.0-94.0 [facility] Comment on above: Performed By: #### C BC #### [facility] [address] [place] [address] Dr. Leonard Strauss MONO # 0.6 103/ul Normal 0.3-0.8 [facility] Comment on above: Performed By: #### C BC #### [facility] [address] [address] [address] Leonard Strauss Monocytes/100 WBC (Bld) 7.0 % Normal 1.7-12.0 [facility] Comment on above: Performed By: #### C BC #### [facility] [address] [address] [address] Leonard Strauss NEUT # 5.8 103/ul Normal 1.4-6.5 [facility] Comment on above: Performed By: #### C BC #### [facility] [address] [place] [address] Dr. Leonard Strauss Neutrophils/100 WBC (Bld) 67.3 % Normal 43.0-75.0 [facility] Comment on above: Performed By: #### C BC #### [facility] [address] [place] [address] Dr. Leonard Strauss Platelet mean volume (Bld) [Entitic vol] 8.9 fL Critically low 9.5-13.5 [facility] Comment on above: Performed By: #### C BC #### [facility] [address] [place] [address] Dr. Leonard Strauss PLT 259 103/ul Normal 150-450 [facility] Comment on above: Performed By: #### C BC #### [facility] [address] [place] [address] Dr. Leonard Strauss RBC 4.15 106/ul Critically low 4.70-6.10 [facility] Comment on above: Performed By: #### C BC #### [facility] [address] [place] [address] Dr. Leonard Strauss WBC 8.6 103/ul Normal 4.0-11.0 [facility] Comment on above: Performed By: #### C BC #### [facility] [address] [place] [address] Dr. Leonard Strauss GLYCOHEMOGLOBIN A1Con 2020 ADA RECOMMENDATION ADA THERAPEUTIC TARG ET 6.0 - 7.0 ACTION SUGGESTED > 7.0 Normal [facility] Comment on above: Performed By: #### A 1C #### [facility] [address] [address] [address] Leonard Strauss Glucose [Mass/Vol] 114 mg/dL Normal [facility] Comment on above: Performed By: #### A 1C #### [facility] [address] [address] [address] Leonard Strauss HbA1c (Bld) [Mass fraction] 5.6 % Normal <=6.0 [facility] Comment on above: Performed By: #### A 1C #### [facility] [address] [place] [address] Dr. Leonard Strauss LIPID PROFILEon 05-04-2021 CHOL-HDL RATIO NORM SEE BELOW Normal [facility] Comment on above: Result Comment: 3.3 - 4.4 LOW RISK 4.4 - 7.1 AVERAGE RISK 7.1 - 11.0 MODERATE RISK >11.0 HIGH RISK Performed By: #### L IPID, CMP #### [facility] [address] [address] [address] Leonard Strauss Cholesterol [Mass/Vol] 203 mg/dL Critically high <=200 [facility] Comment on above: Performed By: #### L IPID, CMP #### [facility] [address] [address] [address] Leonard Strauss Cholesterol in HDL [Mass/Vol] 50 mg/dL Normal [facility] Comment on above: Performed By: #### L IPID, CMP #### [facility] [address] [address] [address] Leonard Strauss Cholesterol in LDL [Mass/Vol] 114.2 mg/dL Normal [facility] Comment on above: Performed By: #### L IPID, CMP #### [facility] [address] [address] [address] Leonard Strauss Cholesterol.total/Cho lesterol in HDL [Mass ratio] 4.1 {ratio} Normal [facility] Comment on above: Performed By: #### L IPID, CMP #### [facility] [address] [address] [address] Leonard Strauss HDL NORMAL > or = 60 mg/dl - LO W CARDIOVASCULAR RISK <40 mg/dl - HIGH CARDIOVASCULAR RISK Normal [facility] Comment on above: Performed By: #### L IPID, CMP #### [facility] [address] [address] [address] Leonard Strauss LDL CALC NORMAL SEE BELOW Normal [facility] Comment on above: Result Comment: <100 mg/dl OPTIMAL 100 - 129 mg/dl NEAR OR ABOVE OPTIMAL 130 - 159 mg/dl BORDERLINE HIGH 160 - 189 mg/dl HIGH >190 mg/dl VERY HIGH Performed By: #### L IPID, CMP #### [facility] [address] [place] [address] Dr. Leonard Strauss Triglyceride [Mass/Vol] 194 mg/dL Critically high <=150 [facility] Comment on above: Performed By: #### L IPID, CMP #### [facility] [address] [address] [address] Leonard Strauss VLDL CALC 38.8 mg/dL Normal [facility] Comment on above: Performed By: #### L IPID, CMP #### [facility] [address] [address] [address] Leonard Strauss PROF 14(COMP METB)on 021 Albumin [Mass/Vol] 3.7 g/dL Normal 3.5-5.0 [facility] Comment on above: Performed By: #### L IPID, CMP #### [facility] [address] [place] [address] Dr. Leonard Strauss Albumin/Globulin [Mass ratio] 0.9 {ratio} Normal [facility] Comment on above: Performed By: #### L IPID, CMP #### [facility] [address] [place] [address] Dr. Leonard Strauss ALP [Catalytic activity/Vol] 84 U/L Normal 38-126 [facility] Comment on above: Performed By: #### L IPID, CMP #### [facility] [address] [place], [place] [id number] Dr. Leonard Strauss ALT [Catalytic activity/Vol] 32 U/L Normal 21-72 [facility] Comment on above: Performed By: #### L IPID, CMP #### [facility] [address] [place] [address] Dr. Leonard Strauss Anion gap [Moles/Vol] 12.8 mmol/L Normal [facility] Comment on above: Performed By: #### L IPID, CMP #### [facility] [address] [place] [address] Dr. Leonard Strauss AST [Catalytic activity/Vol] 22 U/L Normal 17-59 [facility] Comment on above: Performed By: #### L IPID, CMP #### [facility] [address] [place] [address] Dr. Leonard Strauss Bilirubin [Mass/Vol] 0.5 mg/dL Normal 0.2-1.3 [facility] Comment on above: Performed By: #### L IPID, CMP #### [facility] [address] [place] [address] Dr. Leonard Strauss Calcium [Mass/Vol] 8.6 mg/dL Normal 8.4-10.2 [facility] Comment on above: Performed By: #### L IPID, CMP #### [facility] [address] [place] [address] Dr. Leonard Strauss Chloride [Moles/Vol] 103 mmol/L Normal 98-107 [facility] Comment on above: Performed By: #### L IPID, CMP #### [facility] [address] [place] [address] Dr. Leonard Strauss CO2 [Moles/Vol] 25.8 mmol/L Normal 22.0-30.0 [facility] Comment on above: Performed By: #### L IPID, CMP #### [facility] [address] [place] [address] Dr. Leoanrd Strauss Creatinine [Mass/Vol] 0.83 mg/dL Normal 0.66-1.25 [facility] Comment on above: Performed By: #### L IPID, CMP #### [facility] [facility] [address] [address] [address] Leonard Strauss EGFR-AF GERMAN >60 Normal >=60 [facility] Comment on above: Performed By: #### L IPID, CMP #### [facility] [address] [address] [address] Leonard Strauss EGFR-NON AF GERMAN >60 Normal >=60 [facility] Comment on above: Performed By: #### L IPID, CMP #### [facility] [address] [address] [address] Leonard Strauss Globulin (S) [Mass/Vol] 3.9 g/dL Normal [facility] Comment on above: Performed By: #### L IPID, CMP #### [facility] [address] [address] [address] Leonard Strauss Glucose [Mass/Vol] 98 mg/dL Normal 74-106 [facility] Comment on above: Performed By: #### L IPID, CMP #### [facility] [address] [address] [address] Leonard Strauss Potassium [Moles/Vol] 3.6 mmol/L Normal 3.4-5.0 [facility] Comment on above: Performed By: #### L IPID, CMP #### [facility] [address] [address] [address] Leonard Strauss Protein [Mass/Vol] 7.6 g/dL Normal 6.1-8.2 [facility] Comment on above: Performed By: #### L IPID, CMP #### [facility] [address] [address] [address] Leonard Strauss Sodium [Moles/Vol] 138 mmol/L Normal 137-145 [facility] Comment on above: Performed By: #### L IPID, CMP #### [facility] [address] [address] [address] Leonard Strauss Urea nitrogen [Mass/Vol] 22.0 mg/dL Critically high 9.0-20.0 [facility] Comment on above: Performed By: #### L IPID, CMP #### [facility] [address] [address] [address] Leonard Strauss Urea nitrogen/Creatinine [Mass ratio] 26.5 mg/mg Normal [facility] Comment on above: Performed By: #### L IPID, CMP #### [facility] [id number] Leonard Strauss Vital Signs Date Time Vital Sign Value Performing Clinician Facility 03-10-2024 12:45-0400 Diastolic blood pressure 80 mm[Hg] MD Trish Becerril Work Phone: [facility] 03-10-2024 12:45-0400 Heart rate 67 /min MD Trish Becerril Work Phone: [phone] [place] [address] 03-10-2024 12:45-0400 Respiratory rate 20 /min MD Trish Becerril Work Phone: [facility] 03-10-2024 12:45-0400 SaO2% (BldA) [Mass fraction] 97 % MD Trish Becerril Work Phone: [facility] 03-10-2024 12:45-0400 Systolic blood pressure 126 mm[Hg] MD Trish Becerril Work Phone: [facility] 03-10-2024 10:43-0400 Body temperature 96.6 [degF] MD Trish Becerril Work Phone: [facility] 03-10-2024 09:56-0400 Inhaled oxygen flow rate 8 L/min MD Trish Becerril Work Phone: [facility] 03-10-2024 06:23-0400 Body height 181.61 cm MD Trish Becerril Work Phone: [facility] 03-10-2024 06:23-0400 Body weight 119 kg MD Trish Becerril Work Phone: [facility] 02-28-2024 14:51-0400 Body height 185.42 cm MD Trish Becerril Work Phone: [facility] 02-28-2024 14:51-0400 Body mass index (BMI) [Ratio] 34.9 kg/m2 MD Trish Becerril Work Phone: [facility] 02-28-2024 14:51-0400 Body weight 120 kg MD Trish Becerril Work Phone: [facility] 02-05-2024 16:03-0400 Body height 185.42 cm MD Trish Becerril Work Phone: [facility] 02-05-2024 16:03-0400 Body mass index (BMI) [Ratio] 35.1 kg/m2 MD Trish Becerril Work Phone: [facility] 02-05-2024 16:03-0400 Body weight 120.65 kg MD Trish Becerril Work Phone: [facility] 02-05-2024 16:03-0400 Diastolic blood pressure 81 mm[Hg] MD Trish Becerril Work Phone: [facility] 02-05-2024 16:03-0400 Heart rate 81 /min MD Trish Becerril Work Phone: [facility] 02-05-2024 16:03-0400 Systolic blood pressure 143 mm[Hg] MD Trish Becerril Work Phone: [facility] 09-11-2023 15:34-0500 Body height 185.42 cm [facility] 09-11-2023 15:34-0500 Body mass index (BMI) [Ratio] 34.8 kg/m2 [facility] 09-11-2023 15:34-0500 Body weight 119.74 kg [facility] 09-11-2023 15:34-0500 Diastolic blood pressure 80 mm[Hg] [facility] 09-11-2023 15:34-0500 Heart rate 96 /min [facility] 09-11-2023 15:34-0500 Systolic blood pressure 128 mm[Hg] [facility] 02-10-2023 10:55-0400 Body height 185.42 cm Renae Long Other [facility] Other 02-10-2023 10:55-0400 Body mass index (BMI) [Ratio] 37.97 kg/m2 Renae Long Other [facility] Other 02-10-2023 10:55-0400 Body temperature 97.2 [degF] Renae Long Other [facility] Other 02-10-2023 10:55-0400 Body weight 130.55 kg Renaeyulisa Long Other [facility] Other 02-10-2023 10:55-0400 Diastolic blood pressure 87 mm[Hg] Renae Long Other [facility] Other 02-10-2023 10:55-0400 Respiratory rate 18 /min Renae Long Other [facility] Other 02-10-2023 10:55-0400 SaO2% (BldA) [Mass fraction] 98 % Renae Long Other [facility] Other 02-10-2023 10:55-0400 Systolic blood pressure 139 mm[Hg] Renae Long Other [facility] Other 01-17-2023 09:45-0400 Body height 185.42 cm Morteza Colleton II Other [facility] Other 01-17-2023 09:45-0400 Body mass index (BMI) [Ratio] 39.31 kg/m2 Morteza Colleton II Other [facility] Other 01-17-2023 09:45-0400 Body weight 135.17 kg Morteza Colleton II Other [facility] Other 09-06-2022 15:45-0500 Body height 185.42 cm Morteza Colleton II Other [facility] Other 09-06-2022 15:45-0500 Body mass index (BMI) [Ratio] 38.92 kg/m2 Morteza Colleton II Other [facility] Other 09-06-2022 15:45-0500 Body weight 133.81 kg Morteza Claude II Other [facility] Other 07-05-2022 16:45-0500 Body height 185.42 cm Morteza Colleton II Other [facility] Other 07-05-2022 16:45-0500 Body mass index (BMI) [Ratio] 40.1 kg/m2 Morteza Colleton II Other [facility] Other 07-05-2022 16:45-0500 Body weight 137.89 kg Morteza Claude II Other [facility] Other 04-06-2022 16:45-0400 Body height 185.42 cm Morteza Colleton II Other [facility] Other 04-06-2022 16:45-0400 Body mass index (BMI) [Ratio] 39.71 kg/m2 Morteza Colleton II Other [facility] Other 04-06-2022 16:45-0400 Body weight 136.53 kg Morteza Claude II Other [facility] Other 12-21-2021 16:45-0400 Body height 185.42 cm Morteza Claude II Other [facility] Other 12-21-2021 16:45-0400 Body mass index (BMI) [Ratio] 39.97 kg/m2 Morteza Colleton II Other [facility] Other 12-21-2021 16:45-0400 Body weight 137.44 kg Morteza Colleton II Other [facility] Other 11-03-2021 14:00-0400 Body height 185.42 cm Morteza Claude II Other [facility] Other 11-03-2021 14:00-0400 Body mass index (BMI) [Ratio] 39.18 kg/m2 Morteza Claude II Other [facility] Other 11-03-2021 14:00-0400 Body weight 134.72 kg Morteza Colleton II Other [facility] Other Encounters Encounter Date Encounter Type Care Provider Facility Start: 03-10-2024 Non-patient / Non-visit MD Claire Becerril [facility] Phone[facility] Work Phone: Start: 03-10-2024 End: 03-10-2024 Admission to same day surgery center MD Trish Becerril Work Phone: [facility] [place] Start: 03-10-2024 End: 03-10-2024 ambulatory MD Trish Becerril Work Phone: [facility] Work Phone: Start: 02-29-2024 End: 02-29-2024 ambulatory MD Trish Becerril Work Phone: [facility] Work Phone: Start: 02-29-2024 End: 02-29-2024 Patient encounter procedure MD Trish Becerril Work Phone: [facility] Work Phone: Start: 02-28-2024 Registered Recurring MD Trish Becerril Work Phone: [facility] [place] Start: 02-28-2024 End: 02-28-2024 ambulatory MD Trish Becerril Work Phone: [facility] Work Phone: Start: 02-28-2024 End: 02-28-2024 Patient encounter procedure MD Trish Becerril Work Phone: [facility] Work Phone: Start: 02-28-2024 End: 02-28-2024 Patient encounter procedure MD Trish Becerril Work Phone: [facility] Start: 02-28-2024 End: 02-28-2024 ambulatory MD Trish Becerril Work Phone: [facility] Work Phone: Start: 02-26-2024 End: 02-26-2024 Patient encounter procedure MD Trish Becerril Work Phone: [facility] Work Phone: Start: 02-26-2024 End: 02-26-2024 ambulatory MD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
== END 2024-03-13 15:00 | disposition home or self-care (01) ==
LOC: LAB 14:59
PROVIDERS: PCP Family Medicine; Visit Provider Orthopaedic Surgery
DX: N39.0 Urinary tract infection, site not specified (principal)
CPT/HCPCS: 81003; 87086

== ENCOUNTER 2025-06-26 10:27 | Emergency (ER) | payer OTHER, SELFPAY ==
--- OUTSIDE RECORDS SUMMARY | 2025-06-18 19:50 | XMS_ITS | Continuity of Care Document ---
Author Organization [facility] Address [address] [place] [address] Phone Care Team Providers Care Heat Treat Supervisor Name Role Phone Trish Becerril MD Primary Care Provider Trish Becerril MD Attending Provider Morteza Arce II, MD Attending Provider [phone] Care Teams Patient Care Team Team Status: Active Member Role/Relationship Status Dates Trish Becerril MD Primary Care Provider Active Visit Care Team Team Status: Inactive Member Role/Relationship Status Dates Trish Becerril MD Primary Care Provider Active Start: May 28, 2025 End: May 28, 2025Linnette Vera ProviderActiveStart: May 28, 2025 End: May 28, 2025 Visit Care Team Team Status: Inactive Member Role/Relationship Status Dates Trish Becerril MD Primary Care Provider Active Start: June 18, 2025 End: June 18, 2025Linnette Mckeon II ProviderActiveStart: June 18, 2025 End: June 18, 2025 Visit Care Team Team Status: Inactive Member Role/Relationship Status Dates Trish Becerril MD Primary Care Provider Active Start: June 18, 2025 End: June 18, 2025Linnette Mckeon II ProviderActiveStart: June 18, 2025 End: June 18, 2025 Chief Complaint and Reason for Visit Chief Complaint Admit Date congested May 28, 2025 2:13pm OP SP BILAT KNEE PAIN June 18, 2025 3:13pm M25.512 - Pain in left shoulder June 18, 2025 3:24pm Reason for Visit Admit Date Bronchitis May 28, 2025 2:13pm Post-traumatic osteoarthritis of right k nee June 18, 2025 3:13pm Subacromial impingement of left shoulder June 18, 2025 3:13pm Allergies, Adverse Reactions, Alerts Allergen Type Severity Reaction Last Updated Verified Status No Known Allergies Allergy Unknown December 11, 2024 1:46pmYesActive Social History Smoking Status Status Start Date End Date Date of Observa tion Ex-smoker (finding) March 10, 2024 7:14am Observation Status Observation Response Date of Response Legal Sex [facility] (finding) [facility] 1964 Family History Relationship Condition Age at Onset Recorded Date/T jhonatan father Unknown Disorder of lungUnknownmotherDeceasedUnknownMalignant neoplasmUnknown Problems Active Problems Problem Diagnosis/Recorded Date Onset Date Stat us Urinary bladder disorder December 18, 2024 12:03pm Unknow n Active Screening PSA (prostate spec ific antigen) September 11, 2023 4:02pm Unknown Active Other manager terminal (current) drug therapy January 30, 2024 2:40pm Unknown Active Post-traumatic osteoarthriti s of right knee September 05, 2023 2:22pm Unknown Active Primary osteoarthritis of left knee September 05 2:22pm Unknown Active Primary osteoarthritis of right knee June 18 4:42pm Unknown Active Nicotine dependence, cigaret danii, uncomplicated September 12, 2023 2:07pm Unknown Active Status post left partial kne e replacement March 26, 2024 12:03pm Unknown Active Subacromial impingement of l eft shoulder June 18, 2025 4:41pm Unknown Active Wellness examination September 11, 2023 4:02pm Unknow n Active Hyperlipidemia, unspecified September 11, 2023 4:02pm Unknown Active Ejaculatory disorder October 06, 2024 3:13pm Unknown Active Aftercare following left kne e joint replacement surgery March 13, 2024 8:42am Unknown Active Osteoporosis without current pathological fracture January 30, 2024 2:40pm Unknown Active Right knee pain March 13th, 2025 2:03pm Unknown A ctive Preoperative cardiovascular examination February 06, 2024 4:43am Unknown Active Bronchitis May 28, 2025 4:22pm Unknown A ctive Hypertension September 05, 2023 2:22pm Unknown A ctive Medications Medication Status Dose Units Route Directions Qty Days Refills S tart Date Stop Date End Date Reason(s) Instructions Adherence Ergocalciferol (Vitamin D2) 1,250 mcg (50,000 unit) capsule Discontinued 1250 MCG PO Q7D 8 60 0 Brown y 2023 11:00pm December 11, 2024 1:47pmMeloxicam 15 mg dezbxoUeahynigxxyq10MSQAMwrdt084Zfdpsz 2023 11:00pmMay 2024 1:48pmOn Hold: Resume on 04/10/24.Compression stockings 20-30 mm/HgActive0.Route.KFQCLUFTR91Gfmdly 2023 11:00pmAftercare following left knee joint replacement surgery Aftercare following joint replacement surgery Presence of left artificial knee joint lower extremity swellingAs directedOxycodone 5 mg qaptvpOovttuwscgxl1VXZMMpfym 8 hours as needed for Phno2408Lhjibayzf 2023October 2023 10:05amStatus post left unicompartmental knee replacement Presence of left artificial knee jointtwentyTramadol 50 mg ovvnqkJrdsghpcnoub04 HPVLo1t as needed for Phmc3124Nnaxziage 2023 11:51amOctober 2023 10:36amStatus post left unicompartmental knee replacement Presence of left artificial knee jointthirtyCelecoxib 100 mg capsuleDiscontinued 056XBYKjaq26741Znanlzjtt 2023 11:00pmMay 2024 1:47pmarthritisTake with food.Losartan-Hydrochlorothiazide 100-25 mg tabletActive0.ROUTE.AFAUMTF3239 August 04, 2024 4:37pmTAKE ONE TABLET BY MOUTH ONCE DAILYUnknownMeloxicam 15 mg uvcaeaBcurwu84IPWFFweqb967Alqn 2024 11:00pmUnknownAspirin (Julia Low Dose Aspirin) 81 mg tablet,delayed release (DR/EC)Wdvbop66QLQRUdpyx701Fvwngu 2024 10:45amUnknownAspirin (Julia Low Dose Aspirin) 81 mg Tablet,Delayed Release (Dr/Ec)Dfyutmtzwfhy22FUSAQpqmzDlxrnbv 2018 12:00amAst 2024 10:45amAscorbic Acid (Vitamin C) (Vitamin C) 500 mg NfsohaSryebd719RKJB DailyJanuary 2018 12:00amUnknownGlucose 4 gram Tablet,ChewableDiscontinued 9FAUZO65K as needed for HypoglycemiaJanuary 2018 12:00amJuly 2023 3:06pmBisoprolol-Hydrochlorothiazide 10-6.25 mg ReruvaVrcscytzazmj3FJIYJOikbx July 30, 2018 12:00amJuly 2023 3:07pmHTNAtorvastatin 40 mg Tablet Ivkjozkxtzxg73TPHFZisfq at bedtimeJanuary 2018 12:00amJuly 2023 3:06pmIsosorbide Mononitrate 30 mg Tablet Extended Release 24 UoXpbroljelpjp84ER POEvery morningJanuary 2018 12:00amJanuary 2018 10:30amMetoprolol Tartrate 25 mg KyosdiWnilmcsawjex81.5MGPOTwice dailyJanuary 2018 12:00am July 31, 2018 10:30amLosartan-Hydrochlorothiazide 100-25 mg tablet Alezjfqrzcsu2MDFXVWhxro morningAugust 2023 11:00pmJanuary 2024 4:38pmhtnzincActiveDailyAugust 2023 11:00pmUnknownSennosides-Docusate Sodium (Senokot-S) 8.6-50 mg kgzlufJdtqzftwvisj2VQNHUpvyha44677Axyaut 2023 11:00pmSeptember 2023 12:07pmDO NOT RECONCILE UNTIL DOS: 03/10/24. MED TO BEDPolyethylene Glycol 3350 (Miralax) 17 gram/dose ghdmopZifsmfmnacbd53IXJEtweih 770August 2023 11:00pmSeptember 2023 12:07pm1 packed mixed with 8 ounces of fluid.Cefadroxil 500 mg fseaifwAabcelsrzqve561BWOVV89C7944Iwdpho 2023 11:00pmpt2023 12:07pmDO NOT RECONCILE UNTIL DOS: 03/10/24. MED TO BEDAcetaminophen 500 mg ydhaupZfvshj0798YQRGG5L163293Iaajkf 2023 11:00pmDO NOT RECONCILE UNTIL DOS: 03/10/24. MED TO BEDUnknownTramadol 50 mg ffgfxtMvwrhtizjruh67YYRHp9j as needed for Uaju2031Mpjcjm 2023 11:00pm March 26, 2024 12:12pmPrimary osteoarthritis of left knee Unilateral primary osteoarthritis, left kneeDO NOT RECONCILE UNTIL DOS: 03/10/24. MED TO BEDOxycodone 5 mg yilpupQupycshybped0RQCRW1O as needed for Xxrg8003Qnqlmc 2023Sept2023 12:12pmPrimary osteoarthritis of left knee Unilateral primary osteoarthritis, left kneeDO NOT RECONCILE UNTIL DOS: 03/10/24. MED TO BEDOndansetron Hcl 4 mg ikxlaiZvabitfcrbej9GXOQD9V as needed for Jgtwyy60 February 27, 2024 11:00pmpt2023 12:07pmDO NOT RECONCILE UNTIL DOS: 03/10/24. MED TO BEDPantoprazole (Protonix) 20 mg tablet,delayed release (DR/EC) Pfxzuvrjuuog35OLQGfqinx04169Txyirs 2023 11:00pmMa2024 1:48pmDO NOT RECONCILE UNTIL DOS: 03/10/24. MED TO BEDPrednisone 10 mg rjljjgSuzglkeffokr59OK PVpojjy88193Kchmvp 2023 11:00pmpt2023 12:07pmDO NOT RECONCILE UNTIL DOS: 03/10/24. MED TO BEDAspirin 81 mg tablet,delayed release (DR/EC)Ijubogayeflh36SAXAXdwqz smkus38805Dtvmwl 2023 11:00pmMa2024 1:46pmDO NOT RECONCILE UNTIL DOS: 03/10/24. MED TO BEDMethylprednisolone (Medrol (Ike)) 4 mg tablets,dose ebehJqjkzabvmtxg8PXFXay nyvtigld99Vppsiqc 2023 11:00pmOctober 2023 10:05amPrednisone 10 mg nluficToghqduklvxu72RGHDybypu6 50October 2023 11:00pmMay 2024 1:48pmTramadol 50 mg tablet Tajhohdvntdt52NPWRd1w as needed for Flfe0538Tcdmord 2023 10:36amMay 2024 1:48pmStatus post left unicompartmental knee replacement Presence of left artificial knee jointthirtyIbuprofen 200 mg tabletDiscontinued 200MGPOEvery 6 hours as needed for painFebruary 2023 12:00amJuly 2024 2:55pmOn Hold: Resume on 04/10/24. FreeTextSi tablet with food or milk as needed Orally every 6 hrs; Note: Source Status: Not-Taking\PRN; Provider: Tiffany Davis ( ) Losartan 25 mg uqtxwxOofbkbcwcpxo22AXSOJpmsoIchpqzou 2023 12:00amAugust 2023 12:37pmTramadol 50 mg jbdveqYxjjpzompcoh81EKMVf5n as needed for Pain 3070September 2023 12:10pmSeptember 2023 11:52amStatus post left unicompartmental knee replacement Presence of left artificial knee jointthirtyOxycodone 5 mg zokppwBvwgjhgokdtg9QE POEvery 8 hours as needed for Gmiy8624Ypwdgumnh 2023September 2023 11:52amStatus post left unicompartmental knee replacement Presence of left artificial knee jointtwentyDiclofenac Sodium 1 % gel Rosmelnyiwkw6LNWOWQODHXzsmh 4 hours as neededMa2024 11:00pmMay 2024 1:47pmFreeTextSig: APPLY 1-2 GRAMS TO AFFECTED AREA Externally Four times a day; Note: Source Status: Not-Taking\PRN; Refills: 2; Qty: 100 Gram; Provider: Claude Pro MTamsulosin (Flomax) 0.4 mg capsuleActive0.0USVVEnetm490Nbr 2024 11:00pmUnknownAzithromycin 250 mg bngsqbHjiosp2LZ.NRPOKPY97Vuuqcaam 2024 12:00amFor 250 mg dose pack: take 500 mg today (day 1), then 250 mg for 4 days (days 2-5) POUnknownBenzonatate 200 mg rrfudngBlbbgf107BYXK1-3 TIMES PER DAY as needed for rjdgv974Qertsynq2024 12:00amUnknown Immunizations Immunization Event Date Not Given Reason Dose Number Illusionist Lot Number Reason(s) Given Vaccine Information Statement (VIS) Detail Administration Location COVID-19 mRNA, Comirnaty ([employer]) September 26 COVID-19 mRNA, Comirnaty ([employer])October 17OVID-19 mRNA, Comirnaty ([employer])April 15OVID-19 mRNA Bivalent Booster ([employer])June 19OVID-19 ([employer]) 12Y and olderDecember 2022 Medical Equipment Device Date Implanted Device Details Uncoated unicondylar knee fe mur prosthesis March 10, 2024 LUCIO: [id number] Issuing Agency: [facility] Device Id: [id number] Expiration Date: 2032-12-05 Lot Number: [id number] unicondylar knee tibia prosthesis, metallicAugust 2023UDI: ()[id number] Issuing Agency: [facility] Device Id: [id number] Expiration Date: 2034-01-02 Lot Number: [id number] knee insertAugust 2023UDI: ()[id number] Issuing Agency: [facility] Device Id: [id number] Expiration Date: 2028-11-06 Lot Number: [id number] cement, non-medicatedAugust 2023UDI: ()[id number] Issuing Agency: [employer] Device Id: [id number] Expiration Date: 2026-06-14 Lot Number: [id number] Procedures Procedure Date Performed Status XR shoulder LT min 2V* June 18, 2025 3:24pm completed Relevant Diagnostic Tests and/or Laboratory Data Diagnostic Imaging Reports Author Roni Roberts [facility]Report Date/TimeDecemb2024 4:04pm [facility] [address] [place] [address] XRay Report Signed Patient: Alexi Roe MR#: [id number] : 1965 Acct:[id number] Age/Sex: 60 / M ADM Date: 5 Loc: [facility] Room: Type: [facility] Attending Dr: Morteza Arce II, MD Copies to: Morteza Arce MD~ Ordering Provider: Morteza Arce MD Date of Service: 06/18/25 XR/XR shoulder LT min 2V*: M25.512 - Pain in left shoulder LEFT SHOULDER - - 4 views CLINICAL HISTORY: Increased left shoulder pain COMPARISON: None FINDINGS: Moderate degenerative changes involving the AC and glenohumeral joints without acute bony process XR/XR shoulder LT min 2V* IMPRESSION: MILD DEGENERATIVE CHANGES INVOLVING THE LEFT SHOULDER WITHOUT ACUTE BONY PROCESS. Impression dictated by: Roni Roberts Jr., D.OMalcolm 06/18/2025 4:04 PM Dictation Location: [place] [address] Transcribed By: [facility] 06/18/25 1604 Dictated By: Roni Roberts Jr, DO 06/18/25 1603 Signed By: <Electronically signed by Roni Roberts Jr, DO in OV> 06/18/25 160 Vital Signs Vital Reading Result Reference Range Collection Date/Time Height 72 [in_i] May 28, 2025 2:93cqZxufug291.26 kgNov2024 2:17pmBody Oiaarhqjukb05.3 [degF]97.6-99.0Nov2024 2:17pmHeart Rate97 /tov03-024 May 28, 2025 2:17pmOxygen saturation by Pulse bhrtbpaf25 %95-100May 28, 2025 2:17pmBP Nqxjkkho949 mm[Hg]100-140May 28, 2025 2:17pmBP Mqsvilkdc64 mm[Hg]60-100May 28, 2025 2:17pmBMI (Body Mass Index)40.1 kg/j2CmihdisiMay 28, 2025 2:17pm Advance Directives Advance Directive Response Recorded Date/ Time Advance Directives No February 12 10:55am Insurance Providers Guarantor Alexi Woodalltam Address [address] [id number] Info.Home Phone: Payer Group Member ID Coverage Type Subscriber Relationship to Subscriber Effective Date Expiration Date [facility] Medicaid Id: [id number] Lakesha Woodalltam Id: [id number] [address] [address] Home Phone: Email: [email or web address] Encounters Encounter Location(s) Arrival/Admit Date Discharge/Departure Date Discharge/Departure Disposition Provider(s) Departed Physician/ Provider Office Visit -[facility] May 28, 2025 2:13pm May 28, 2025 2:52pm Discharged to home care or self care (routine discharge) Trish Becerril MD Departed Physician/ Provider Office Visit -[facility] June 18, 2025 3:13pm June 18, 2025 4:31pm Discharged to home care or self care (routine discharge) Jonas Arredondo MD Departed Clinical -[facility] June 18, 2025 3:24pm June 18, 2025 3:25pm Discharged to home care or self care (routine discharge) Jonas Arredondo MD Recent Diagnosis Onset Date Admit Date Bronchitis Unknown May 28, 2 025 2:13pm Post-traumatic osteoarthritis of right knee Unkn own June 18, 2025 3:13pm Subacromial impingement of left shoulder Unknown June 18, 2025 3:13pm Assessments Diagnosis Onset Date Resolution Status Admit Date Bronchitis acuteMay 28, 2025 2:13pmPost-traumatic osteoarthritis of right kneeacute June 18, 2025 3:13pmSubacromial impingement of left shoulderacuteDecemb2024 3:13pm Plan of Treatment [facility] 4:23pmDiscussed diagnosis with patient. Patient to start Zithromax. Patient to take Zithromax daily with food as prescribed. Finish entire course of antibiotic. Tessalon Pearles ordered to take as needed for cough. Increase fluids and rest. Qjty-pre-ponxcrp antipyretics as needed. Warning signs and symptoms reviewed with patient today. Patient to go immediately to the ER should she experience any of these. Patient to notify office should her symptoms persist and not improve. Patient verbalizes understanding and agrees to treatment plan. Future Tests Future scheduled test information is unavailable Pending Tests Pending diagnostic test information is unavailable Future Visits Future appointment information is unavailable Future Procedures Future procedure information is unavailable Future Medications Future medication information is unavailable Patient Instructions Patient instructions are unavailable
[2025-06-26 10:33] VITALS: BP 170/90; PULSE 110; TEMP 36.9; O2SAT 96; BMI 37.6
--- NOTE | 2025-06-26 10:50 | ED_ITS ---
HPI HPI - General Adult General Chief complaint: Upper Respiratory Infection Stated complaint: SOB CONJESTION Time Seen by Provider: 06/26/25 10:39 Source: patient Mode of arrival: walk-in History of Present Illness HPI narrative: 60-year-old male presented to the emergency department for a cough. He has been coughing up some clear phlegm. No hemoptysis or known fever. He states he gets bronchitis every year and he thinks he has it again. He was on Zithromax a few weeks ago. Related Data Home Medications ?Medication ?Instructions ?Recorded ?Confirmed aspirin 81 mg tablet,delayed 81 mg PO DAILY 06/26/25 1 08/27/24 release benzonatate 200 mg capsule 200 mg PO 06/26/25 losartan 100 1 tab PO 06/26/25 mg-hydrochlorothiazide 25 mg tablet meloxicam 15 mg tablet 15 mg PO 06/26/25 sildenafil 25 mg tablet mg 06/26/25 tadalafil 5 mg tablet 5 mg PO 06/26/25 Previous Rx's ?Medication ?Instructions ?Recorded benzonatate 100 mg capsule 100 mg PO TID PRN cough #20 caps 06/26/25 doxycycline hyclate 100 mg capsule 100 mg PO BID 10 da ys #20 caps 06/26/25 Allergies Allergy/AdvReac Type Severity Reaction Status Date / Time No Known Drug Allergies Allergy Verified 06/26/25 10:30 Review of Systems ROS Narrative A ten point review of systems is negative except as noted above. PFSH PFSH Social History Little interest or pleasure in doing things: not at all Feeling down, depressed, or hopeless: not at all Exam Narrative Exam Narrative: Nurses note and vital signs reviewed General:The patient appears well and in no apparent distress. He is speaking in full sentences Skin:Warm, dry, no pallor noted.There is no rash noted. Head:Normocephalic, atraumatic Eye: Normal conjunctiva, no drainage Ears, Nose, Mouth, and Throat: oral mucosa is moist. Nares patent. Cardiovascular:Regular Rate and Rhythm Respiratory: Good air movement. Breath sounds are equal, no rhonchi Back:non-tender GI:Normal bowel sounds, no tenderness to palpation, no masses appreciated.No rebound, guarding, or rigidity noted. Musculoskeletal: The patient has no evidence of calf tenderness, no pitting edema, symmetrical pulses noted bilaterally Neurological:A&O, normal speech Psychiatric:Cooperative Constitutional Vital Signs, click to edit/add: Last Vital Signs Temp 98.4 F 06/26/25 10:33 Pulse 110 H 06/26/25 10:33 Resp 20 06/26/25 10:33 BP 170/90 H 06/26/25 10:33 Pulse Ox 96 06/26/25 10:33 O2 Del Method Room Air 06/26/25 10:33 Course Vital Signs Vital signs: Vital Signs Temperature 98.4 F 06/26/25 10:33 Pulse Rate 110 H 06/26/25 10:33 Respiratory Rate 20 06/26/25 10:33 Blood Pressure 170/90 H 06/26/25 10:33 Pulse Oximetry 96 06/26/25 10:33 Oxygen Delivery Method Room Air 06/26/25 10:33 Temperature 98.4 F 06/26/25 10:33 Pulse Rate 110 H 06/26/25 10:33 Respiratory Rate 20 06/26/25 10:33 Blood Pressure 170/90 H 06/26/25 10:33 Pulse Oximetry 96 06/26/25 10:33 Oxygen Delivery Method Room Air 06/26/25 10:33 Medical Decision Making MDM Narrative Medical decision making narrative: He was offered COVID and influenza test but does not feel that he needs them. I do not feel a chest x-ray is indicated. He is prescribed doxycycline and Tessalon. We discussed albuterol. He states he has used an inhaler before but he had a bad reaction and had to be rushed to the hospital. We will avoid bronchodilators at this point. Treatment diagnosis and follow-up were discussed with the patient. Differential Diagnosis Differential Diagnosis: URI, pneumonia Discharge Plan Discharge Chief Complaint: Upper Respiratory Infection Clinical Impression: Upper respiratory infection Patient Disposition: Home, Self-Care Time of Disposition Decision: 10:49 Condition: Good Mode of Transportation: Private Vehicle Prescriptions / Home Meds: New benzonatate 100 mg capsule 100 mg PO TID PRN (Reason: cough) Qty: 20 0RF doxycycline hyclate 100 mg capsule 100 mg PO BID 10 Days Qty: 20 0RF No Action aspirin 81 mg tablet,delayed release (DR/EC) 81 mg PO DAILY benzonatate 200 mg capsule 200 mg PO losartan-hydrochlorothiazide 100-25 mg tablet 1 tab PO meloxicam 15 mg tablet 15 mg PO sildenafil 25 mg tablet tadalafil 5 mg tablet 5 mg PO Print Language: Irish Instructions: Upper Respiratory Infection (ED) Referrals: Trish Becerril MD [Primary Care Provider, Family Practice] - 1 week
== END 2025-06-26 11:02 | disposition home or self-care (01) ==
LOC: ER 10:51
PROVIDERS: Emergency Provider Emergency Medicine; PCP Family Medicine
DX: J06.9 Acute upper respiratory infection, unspecified (principal)
CPT/HCPCS: 99282; 99283